=== PATIENT | female | born 1975 | race Caucasian/White ===

== ENCOUNTER → 2017-01-14 | Outpatient (CLI) | payer BC ==
[~2017-01-14] MED LIST: CYAN250T PO; FERR1TAB23 PO; LAMO150T32 PO; PROM25TA9 PO; SUMA100T16 PO; TOPI50TA16 PO
[2017-01-14 13:48] LABS: BASO ABS # 0.05 K/uL (0-0.2); COMPLETE YES; HEMATOCRIT 43.3 % (37-47); IG% 0.2 %; LYMPH % 34.4 %; MEAN CELL VOLUME 80.3 fL (80-100); MEAN CORPUSCULAR HEMOGLOBIN 26.2 pg (25-34); MEAN CORPUSCULAR HGB CONC 32.6 g/dl (32-36); MEAN PLATELET VOLUME 10.3 fL (7.4-10.4); MONO % 7.3 %; NEUT % 56.1 %; PLATELET COUNT 289 K/uL (130-400); RED BLOOD COUNT 5.39 M/uL (4.2-5.4); WHITE BLOOD COUNT 5.23 K/uL (4.8-10.8)
== END | disposition home or self-care (01) ==
LOC: C.LAB1850 12:53
PROVIDERS: ATTEND Obstetrics & Gynecology
DX: N92.0 Excessive and frequent menstruation with regular cycle (principal)

== ENCOUNTER → 2017-01-14 | Outpatient (CLI) | payer BC | END | disposition home or self-care (01) | LOC: C.PAPS 10:38 | PROVIDERS: ATTEND Obstetrics & Gynecology | DX: Z01.419 Encounter for gynecological examination (general) (routine) without abnormal findings (principal) ==

== ENCOUNTER → 2017-02-17 | Outpatient (CLI) | payer BC ==
[2017-02-17 16:04] LABS: BASO % 0.5 %; BASO ABS # 0.03 K/uL (0-0.2); COMPLETE YES; EOS % 1.1 %; HEMATOCRIT 44.7 % (37-47); IG% 0.2 %; LYMPH ABS # 1.93 K/uL (1.2-3.4); MEAN CELL VOLUME 84.3 fL (80-100); MEAN PLATELET VOLUME 10.2 fL (7.4-10.4); MONO % 8.9 %; NEUT % 54.3 %; PLATELET COUNT 320 K/uL (130-400); WHITE BLOOD COUNT 5.52 K/uL (4.8-10.8)
== END | disposition home or self-care (01) ==
LOC: C.LAB1850 14:13
PROVIDERS: ATTEND Obstetrics & Gynecology
DX: N92.0 Excessive and frequent menstruation with regular cycle (principal); N84.0 Polyp of corpus uteri; Z01.818 Encounter for other preprocedural examination

== ENCOUNTER 2017-03-19 08:06 | Day surgery (SDC) | payer BC ==
[2017-02-23 10:36] VITALS: BMI 25.0
[~2017-03-19] VITALS: Ht 162.6 cm; Wt 67.3 kg
[~2017-03-19 08:06] MED LIST changes: +ATROPINE SULFATE 0.1 MG/ML 5ML SYR IV PRN; +EpHEDrine SULFATE INJ 50 MG/ML AMP IV PRN; +FENTANYL CITRATE INJ 50 MCG/1 ML 2 ML VIAL IV PRN; +HYDROmorphone INJ 1 MG/ML SYR IV PRN; +LACTATED RINGER'S 1000ML 1,000 ML IV SCH; +ONDANSETRON INJ 2 MG/ML 2 ML VIAL IV PRN
[2017-03-19 08:46] VITALS: BP 126/79; PULSE 82; TEMP 36.7; O2SAT 100; Ht 162.6 cm; Wt 67.3 kg
--- NOTE | 2017-03-19 10:35 | History & Physical Bridge Note ---
H&P Re-Evaluation Bridge Note: I have examined the patient, reviewed the History & Physical and in the interval since the performance of the History & Physical I have noted the following changes of clinical significance: Patient had a seizure on Wednesday - she saw neurology, who increased lamictal and topamax dosages in preparation for today's surgery. I discussed with patient, her mother, and anesthesiologist at bedside. Patient strongly desires to proceed with surgery today. We discussed that general anesthesia carries risk of undiagnosed seizure - therefore will proceed with sedation and cervical block for hysteroscopy/D&C. If patient is not tolerating the procedure, will abort the procedure rather than put patient to sleep. Patient is aware of this and agreeable.
[2017-03-19] MEDS ORDERED: FENTANYL CITRATE INJ 50 MCG/1 ML 2 ML VIAL ONE (11:01)
[2017-03-19] MEDS ORDERED: MIDAZOLAM HCL 1 MG/ML 2ML VIAL ONE (11:01)
[2017-03-19] MEDS ORDERED: LIDOCAINE HCL 1% 20 ML VIAL ONE (11:30)
[2017-03-19] MEDS ORDERED: LIDOCAINE HCL 2% 2 ML VIAL (20MG/ML) ONE (11:35)
[2017-03-19] MEDS ORDERED: PROPOFOL IV EMULSION 10 MG/ML 20 ML VIAL IV ONE (11:35)
[2017-03-19] MEDS ORDERED: KETOROLAC TROMETHAMINE 30 MG/ML VIAL ONE (12:02)
--- NOTE | 2017-03-19 12:27 | Medical Student: [facility] ---
Immediate Operative Summary Operative Date Mar 19, 2017. Pre-Operative Diagnosis Menorrhagia, uterine polyp Post-Operative Diagnosis Endometrial fibroid Procedure(s) Performed Hysteroscopy Polypectomy Dilation and Curettage Surgeon Gunner Furniture Sprayer Surgeon(s) None Estimated Blood Loss 5 cc Findings Endometrial fibroid was visualized with normal anatomy otherwise. Fluids (cc crystalloids) 50 cc Specimens Endometrial tissue Drains None Anesthesia Sedation Complication(s) None Disposition Recovery Room / PACU
[2017-03-19] MEDS ORDERED: SODIUM CHLORIDE 0.9% 1000ML 1,000 ML IV SCH (12:37)
--- NOTE | 2017-03-19 12:42 | Anesthesiology Progress Note ---
Anesthesia Post Op Note Date & Time Mar 19, 2017 at 12:42 Vital Signs Pain Intensity: 0 Vital Signs Past 12 Hours Date Time Temp Pulse Resp B/P (MAP) Pulse Ox O2 Delivery O2 Flow Rate FiO2 03/19/17 12:35 36.2 56 16 125/82 100 Room Air 03/19/17 12:25 63 16 132/82 100 Mask 4 03/19/17 12:15 36.5 65 16 144/101 100 Mask 10 03/19/17 08:46 36.7 82 18 126/79 (95) 100 Room Air Notes Mental Status: alert / awake / arousable, participated in evaluation Pt Amnestic to Procedure: Yes Nausea / Vomiting: adequately controlled Pain: adequately controlled Airway Patency, RR, SpO2: stable & adequate BP & HR: stable & adequate Hydration State: stable & adequate Anesthetic Complications: no major complications apparent
[2017-03-19] MEDS ORDERED: PROMETHAZINE HCL INJ 25 MG in SODIUM CHLORIDE 0.9% 50ML 50 ML IV PRN (12:45)
[2017-03-19] MEDS ORDERED: ONDANSETRON INJ 2 MG/ML 2 ML VIAL IV PRN (12:45)
[2017-03-19] MEDS ORDERED: OXYCODONE/ACETAMINOPHEN 5-325 TAB PO PRN ×2 (12:45)
--- NOTE | 2017-03-19 12:47 | [facility] Post Operative Brief Note ---
Immediate Operative Summary Operative Date Mar 19, 2017. Pre-Operative Diagnosis Heavy menses; Endometrial polyp Post-Operative Diagnosis Heavy menses; Endometrial fibroid Procedure(s) Performed Hysteroscopy; Dilation & Currettage; Polypectomy Surgeon Dr. Kenzie Martino Financial Writer Surgeon(s) none Estimated Blood Loss 5mL Findings Bilateral tubal ostia visualized. Fundal submucosal fibroid. Specimens A: endometrial currettings B: Fibroids Drains bladder drained prior to procedure Anesthesia sedation Complication(s) None Disposition Recovery Room / PACU
--- NOTE | 2017-03-19 12:49 | Discharge Instructions ---
Discharge Instructions Date of Service Mar 19, 2017. Visit Reason for Visit: Heavy Menses Discharge Discharge Diagnosis / Problem: Submucosal fibroid Discharge Goals Goal(s): Diagnostic testing, Therapeutic intervention Activity Recommendations Activity Limitations: per Instructions/Follow-up section Anesthesia . Post Anesthesia Instructions: If you have had General Anesthesia or IV Sedation: * Do not drive today. * Resume driving when surgeon permits. * Do not make important decisions or sign legal documents today. * Call surgeon for: 1. Temperature elevations greater than 101 degrees F. 2. Uncontrollable pain. 3. Excessive bleeding. 4. Persistent nausea and vomiting. 5. Medication intolerance (nausea, vomiting or rash). * For nausea and vomiting use only clear liquids such as: tea, soda, bouillon until nausea subsides, then gradually increase diet as tolerated. * If you have any concerns or questions, call your surgeon's office. If physician is unavailable and it is an emergency, call 911 or go to the nearest emergency room. . Instructions / Follow-Up Instructions / Follow-Up ACTIVITY RECOMMENDATIONS: * Avoid tampons, douching, hot tubs, pools, and intercourse until bleeding has stopped. * May shower as usual. * No strenuous activity for 24-48 hours. After 24-48 hours, you may do anything you feel like doing (driving and sports are okay). SPECIAL CARE INSTRUCTIONS: Special Diet: * Mild nausea may occur in the immediate post-operative period. * Take clear liquids such as tea, cola or bouillon until all nausea has subsided; you may then resume your normal diet. Special Care: * Light bleeding and vaginal spotting can last from a few days to 3-4 weeks. Call your doctor if bleeding becomes heavier than the heaviest part of your period. * Check your temperature twice a day for one week. If it goes above 100.4 degrees Fahrenheit (38.0 Celsius), notify your doctor. * Call your doctor's office for an appointment for 6 weeks after your surgery. FOLLOW-UP VISIT: Call your doctor's office for an appointment for 6 weeks after your surgery. Diet Recommendations Recommended Home Diet: resume previous diet Procedures Procedures Performed: Hysteroscopy; Dilation & Currettage; Polypectomy Pending Studies Studies pending at discharge: no Medical Emergencies . Who to Call and When: Medical Emergencies: If at any time you feel your situation is an emergency, please call 911 immediately. . Non-Emergent Contact Non-Emergency issues call your: Primary Care Provider, Neonatal Doctor . . "Provider Documentation" section prepared by Samia Martino. .
[2017-03-19 12:58] VITALS: BP 122/81; PULSE 62; TEMP 36.4; O2SAT 100
[2017-03-19 13:20] VITALS: BP 116/73; PULSE 68; O2SAT 100
[2017-03-19 13:50] VITALS: BP 124/80; PULSE 76; TEMP 36.6; O2SAT 100
--- NOTE | 2017-03-19 14:15 | OPERATIVE REPORT ---
DATE OF OPERATION: 03/19/2017 PREOPERATIVE DIAGNOSES: Heavy menses and endometrial polyp on ultrasound. POSTOPERATIVE DIAGNOSES: Heavy menses and an endometrial fibroid. PROCEDURES PERFORMED: Hysteroscopy, dilation and curettage and polypectomy with MyoSure device. SURGEON: Samia Martino DO CHISEL WORKER: None. ESTIMATED BLOOD LOSS: 5 mL. FINDINGS: Bilateral tubal ostia visualized. Fundal submucosal fibroid. SPECIMENS: Endometrial curettings and fibroid. DRAINS: Bladder drained prior to procedure. ANESTHESIA: Sedation. COMPLICATIONS: None. DISPOSITION: Recovery room. INDICATIONS FOR PROCEDURE: The patient is a 41-year-old with a history of heavy menses. No intermenstrual spotting with polyp appearing intracavitary lesion on ultrasound. The patient has a history of seizure disorder with a recent seizure. She was cleared by neurology to have the procedure done today with an increase in medications, but in order to better monitor the patient for seizure activity, the procedure was performed under sedation rather than general anesthesia. DESCRIPTION OF PROCEDURE: The patient was seen in the preoperative holding area, where risks, benefits, and alternatives to surgery were reviewed. She elected to proceed with surgery. Informed consent had previously been obtained in the office. She was taken to the operating room, where sedation was introduced. She was placed in the dorsal lithotomy position with feet in Yellofin stirrups. The bladder was drained. A timeout was confirmed. A weighted speculum was placed in the vagina. The cervix was visualized and its anterior lip was grasped with a single tooth tenaculum. The cervix was then gently dilated. The patient tolerated this well with no additional local anesthesia. The cervix was gently dilated to accommodate a hysteroscope. The hysteroscope was placed and the above noted findings were seen. The hysteroscope was then withdrawn and the MyoSure device and scope were placed. Using the MyoSure device, the fibroid was resected and the device was then withdrawn. A gentle curettage was undertaken with a sharp curette. These curettings were then sent to pathology. All instruments were removed from the vagina. Excellent hemostasis was noted. The patient was then awoken from sedation and taken to recovery room in stable and good condition. I attest to the content of the Intraoperative Record and any orders documented therein. Any exception s are noted below.
== END 2017-03-19 13:55 | disposition home or self-care (01) ==
LOC: C.ACU 08:06
PROVIDERS: ATTEND Obstetrics & Gynecology
DX: N92.0 Excessive and frequent menstruation with regular cycle (principal); N84.0 Polyp of corpus uteri; N87.0 Mild cervical dysplasia; D25.9 Leiomyoma of uterus, unspecified; Z68.25 Body mass index [BMI] 25.0-25.9, adult